=== PATIENT | female | born 1965 | race Caucasian/White ===

== ENCOUNTER 2020-03-23 06:50 | Outpatient (NON) | payer MEDICARE, SELFPAY ==
[2020-03-23 18:24] LABS: SARS-CoV-2 RNA PCR Negative
== END 2020-03-23 06:51 ==
PROVIDERS: PCP Family Medicine; Visit Provider Physician Assistant
DX: Z20.828 Contact with and (suspected) exposure to other viral communicable diseases (principal); R50.9 Fever, unspecified
CPT/HCPCS: 87635; C9803; U0003

== ENCOUNTER 2022-04-04 09:11 | Outpatient (CLI) | payer MEDICARE, SELFPAY ==
--- NOTE | ~2022-04-04 | XR_ITS ---
EXAMINATION: XR chest 2V 04/04/2022 09:33 INDICATION: Lower respiratory infection PROCEDURE: PA and lateral views of the chest COMPARISON: 01/12/2011 FINDINGS: The lungs are clear. The cardiomediastinal silhouette is within normal limits. There are no pleural effusions. There is no pneumothorax suspected. IMPRESSION: 1: NO ACUTE CARDIOPULMONARY DISEASE. Reviewed, dictated and finalized at location A. PAPER COPY EDITOR
[2022-04-04 13:47] LABS: Influenza A QL RT-PCR Positive (Negative); Influenza B QL RT-PCR Negative (Negative); RSV RNA, RT-PCR Negative (Negative); SARS-CoV-2 RNA PCR Negative
== END 2022-04-04 09:12 | disposition home or self-care (01) ==
LOC: ANHIMG 09:15
PROVIDERS: PCP Family Medicine; Visit Provider Physician Assistant Medical
DX: J22 Unspecified acute lower respiratory infection (principal); Z20.822 Contact with and (suspected) exposure to COVID-19
CPT/HCPCS: 71046; 87637

== ENCOUNTER 2022-09-05 14:44 | Outpatient (CLI) | payer MEDICARE, SELFPAY ==
--- NOTE | 2022-09-05 15:09 | ECG_ITS ---
Measurements Intervals [place] Rate: 69 P: -7 AL: 173 QRS: 44 QRSD: 88 T: 28 QT: 406 QTc: 436 Interpretive Statements SINUS RHYTHM BORDERLINE ST ABNORMALITY- INFERIOR LEADS BORDERLINE ECG NO PREVIOUS ECG AVAILABLE FOR COMPARISON Electronically Signed On 09-05-2022 15:34:57 CDT by Timo Tineo D.O.
== END 2022-09-05 14:45 | disposition home or self-care (01) ==
PROVIDERS: PCP Family Medicine; Visit Provider Family Medicine
DX: G45.9 Transient cerebral ischemic attack, unspecified (principal); I10 Essential (primary) hypertension; R94.31 Abnormal electrocardiogram [ECG] [EKG]
CPT/HCPCS: 93005

== ENCOUNTER → 2022-12-31 13:28 | Outpatient (CLI) | payer MEDICARE, SELFPAY ==
--- NOTE | ~2022-12-31 | MM_ITS ---
EXAMINATION: MM screening [facility] BI w yessenia HISTORY: Screening mammogram TECHNIQUE: Craniocaudal and mediolateral oblique 3-D tomosynthesis images were obtained and synthetic 2-D images were generated. CAD analysis was submitted and interpreted. COMPARISON: 11/22/2010, 11/10/2009 BREAST PARENCHYMAL COMPOSITION: There are scattered areas of fibroglandular density. FINDINGS: No suspicious mass, calcification, or architectural distortion are identified in either bekah ast to suggest malignancy. There has been no suspicious interval change. IMPRESSION: 1. No mammographic evidence of malignancy. 2. Recommend routine screening mammography in one year. BI-RADS Category 1: Negative Reviewed, dictated and finalized at location A.
== END ==
PROVIDERS: PCP Family Medicine; Visit Provider Obstetrics & Gynecology
DX: Z12.31 Encounter for screening mammogram for malignant neoplasm of breast (principal)
CPT/HCPCS: 77063; 77067

== ENCOUNTER 2024-02-20 13:21 | Outpatient (CLI) | payer MEDICARE, SELFPAY ==
--- NOTE | ~2024-02-20 | XR_ITS ---
EXAMINATION: XR chest 2V 02/20/2024 13:30 INDICATION: Cough. PROCEDURE: 2 view chest COMPARISON: 04/04/2022 FINDINGS: The lungs are clear. The cardiomediastinal silhouette is within normal limits. There are no pleural effusions. There is no pneumothorax suspected. IMPRESSION: 1: NO ACUTE CARDIOPULMONARY DISEASE. Reviewed, dictated and finalized at location B.
== END 2024-02-20 13:22 | disposition home or self-care (01) ==
LOC: MICIMG 13:22
PROVIDERS: PCP Family Medicine; Visit Provider Student in an Organized Health Care Education/Training Program
DX: R05.9 Cough, unspecified (principal)
CPT/HCPCS: 71046

== ENCOUNTER 2024-06-04 12:41 | Outpatient (CLI) | payer MEDICARE, SELFPAY ==
--- OUTSIDE RECORDS SUMMARY | 2024-06-04 13:26 | XMS_ITS | Clinical Summary ---
Author Organization [facility] nty Address [address] [place] [address] Phone Care Team Providers Care Salon Designer Name Role Phone Unavailable Primary Care Provider Unavailabl e Social History Tobacco Use Types Packs/Day Years Used Date Smoking Tobacco: Never Assessed Comments Unknown Sex and Gender Information Value Date Recorded Sex Assigned at Not on file Legal Sex Female 8:43 AM CDT Gender Identity Not on file Sexual Orientation Not on file Plan of Treatment Health Maintenance Due Date Last Done Comments DTAP/TDAP/TD VACCINES (1 - Tdap) 1984 HEPATITIS B VACCINES (1 of 3 - 19+ 3-dose series) 09/1984 CERVICAL CANCER SCREENING 09/08/1995 BREAST CANCER SCREENING 2005 COLORECTAL SCREENING 2010 Colorectal Cancer Screening 2010 FIT-DNA Q 3 years 2010 FIT/FOBT Q 1 year 2010 Flex Sig/CT Colonography Q 5 years 2010 ZOSTER VACCINE (1 of 2) 09/08/2015 INFLUENZA VACCINE (#1) 2023 Insurance AETNA [id number] [place] [id number]
--- OUTSIDE RECORDS SUMMARY | 2024-06-04 13:26 | XMS_ITS | Patient Health Summary ---
Author Organization [facility] Address [address] [place] [address] Care Team Providers Care Nutritional Services Director Name Role Phone Radha Dickinson MD Primary Care Provider [phone] Note from [facility],non-owned Affiliates and Associated Physician Practices is amultiple site organization consisting of ambulatory clinics and hospital sitesin [place], [place], [place] and [place]. This disclosure is being madepursuant to the Care Everywhere program and may not contain all information available regarding this patient. Last updated 18.[facility] Allergies No known active allergies Medications * Be aware that medications may not be up to date on this document. Alwaysverify current medications with the patient. * zolpidem (AMBIEN) 10 MG tablet(Started 07/15/2017) Take 10 mg by mouth. * citalopram (CELEXA) 40 MG tablet(Started 07/11/2017) Take 40 mg by mouth DAILY. * aspirin (ASPIRIN) 325 MG tablet(Started 07/11/2017) Take 325 mg by mouth DAILY. 3 refills left * fluticasone propionate (FLONASE) 50 MCG/ACT nasal spray(Started 07/18/2017) Candia 2 sprays into each nostril DAILY. 3 refills left * atorvastatin (LIPITOR) 20 MG tablet(Started 05/30/2017) Take 20 mg by mouth once daily 2 refills left * cyclobenzaprine (FLEXERIL) 10 MG tablet Take 1 tablet by mouth * omeprazole (PRILOSEC) 20 MG capsule(Started 03/17/2014) Take 20 mg by mouth daily before breakfast * busPIRone (BUSPAR) 15 MG tablet(Started 10/23/2017) Take 15 mg by mouth once daily 2 refills left * metoprolol succinate XL 24hr (TOPROL XL) 200 MG tablet(Started 10/23/2017) Take 200 mg by mouth once daily 1 refill left * lisinopril (PRINIVIL; ZESTRIL) 10 MG tablet(Started 10/15/2018) Take 10 mg by mouth once daily 2 refills left * amLODIPine (Norvasc) 5 MG tablet(Started 08/27/2022) Take 1 (one) tablet by mouth once daily * amoxicillin-clavulanate (Augmentin) 500-125 MG tablet(Started 10/08/2022) Take 1 (one) tablet by mouth as directed * cephalexin (Keflex) 500 MG capsule(Started 09/28/2022) Take 1 (one) capsule by mouth as directed * doxycycline hyclate 100 MG tablet(Started 05/10/2021) Take 1 (one) tablet by mouth 2 times daily * flurbiprofen 0.03% (Ocufen) 0.03 % ophthalmic solution(Started 08/21/2022) Instill 1 (one) drop into both eyes 3 times daily * guaiFENesin-codeine (Robitussin AC) 100-10 MG/5ML syrup(Started 04/04/2022) Take 5 mL by mouth as directed * hydroCHLOROthiazide (Hydrodiuril) 12.5 MG(Started 11/03/2022) Take 1 (one) tablet by mouth as directed * HYDROcodone-acetaminophen (Harmans) 5-325 MG tablet(Started 10/25/2022) Take 1 (one) tablet by mouth as directed * lisinopril (Prinivil; Zestril) 40 MG tablet(Started 09/24/2022) Take 1 (one) tablet by mouth once daily * methylPREDNISolone (Medrol Dosepak) 4 MG tablet(Started 09/28/2022) Take 1 (one) tablet by mouth as directed * montelukast (Singulair) 10 MG tablet(Started 08/23/2022) Take 1 (one) tablet by mouth once daily * moxifloxacin (Vigamox) 0.5 % ophthalmic solution(Started 08/21/2022) Instill 1 (one) drop into both eyes 3 times daily * prednisoLONE acetate (Pred Forte) 1 % ophthalmic suspension(Started 08/21/2022) Instill 1 (one) drop into both eyes 3 times daily * predniSONE (Deltasone) 10 MG tablet(Started 04/04/2022) Take 1 (one) tablet by mouth as directed * traMADol (Ultram) 50 MG tablet(Started 01/10/2022) Take 1 (one) tablet by mouth every 4 hours as needed For pain. * citalopram (CeleXA) 20 MG tablet(Started 09/13/2022) Take 1 (one) tablet by mouth as directed Active Problems Problem Noted Date Diagnosed Date Tongue lesion 11/01/2017 Malignant neoplasm of tongue 07/11/2017 Other diseases of tongue 12/09/2010 Social History Tobacco Use Types Packs/Day Years Used Date Smoking Tobacco: Every Day Cigarettes Smokeless Tobacco: Never Alcohol Use Standard Drinks/Week Comments Yes 12.5 (1 standard drink = 0.6 oz pure alcohol) Sex and Gender Information Value Date Recorded Sex Assigned at Not on file Gender Identity Not on file Sexual Orientation Not on file Last Filed Vital Signs Vital Sign Reading Time Taken Comments Blood Pressure 156/84 12/11/2019 3:10 PM CDT Pulse 73 12/11/2019 3:10 PM CDT Temperature 36.7 ??C (98.1 ??F) 07/11/2017 3:00 PM CS T Respiratory Rate 16 07/11/2017 3:15 PM PIANO ASSEMBLER Oxygen Saturation 96% 07/11/2017 3:15 PM PIANO ASSEMBLER Inhaled Oxygen Concentration - - Weight 86.9 kg (191 lb 9.6 oz) 12/11/2019 3:10 P M CDT Height 167.6 cm (5' 6 ) 12/11/2019 3:10 PM CDT Body Mass Index 30.93 12/11/2019 3:10 PM CDT Procedures * CARDIAC EKG ORDER(Performed 12/21/2019) * PATHOLOGY/GENETICS HISTORICAL-ONBASE(Performed 07/12/2017) * PATHOLOGY/GENETICS HISTORICAL-ONBASE(Performed 07/12/2017) * PATHOLOGY TISSUE(Performed 07/11/2017) * CBC W AUTO DIFFERENTIAL(Performed 07/11/2017) * TYPE + SCREEN PANEL(Performed 07/11/2017) * CBC W AUTO DIFFERENTIAL(Performed 07/11/2017) * EKG 12-LEAD(Performed 07/11/2017) * PATHOLOGY/GENETICS HISTORICAL-ONBASE(Performed 07/11/2017) * CT NECK SOFT TISSUE W CONT(Performed 06/28/2017) * CT CHEST W CONTRAST(Performed 06/28/2017) * CREATININE BLOOD - POCT (IP) [facility](Performed 06/28/2017) * PATHOLOGY TISSUE(Performed 03/22/2014) * TYPE + SCREEN PANEL(Performed 03/22/2014) * PATHOLOGY/GENETICS HISTORICAL-ONBASE(Performed 03/22/2014) * PATHOLOGY/GENETICS HISTORICAL-ONBASE(Performed 08/13/2012) * PATHOLOGY/GENETICS HISTORICAL-ONBASE(Performed 07/07/2010) * PATHOLOGY/GENETICS HISTORICAL-ONBASE(Performed 07/07/2010) Results * CARDIAC EKG ORDER (12/21/2019 8:45 PM CDT) Narrative 12/21/2019 8:45 PM CDT Ordered by an unspecified provider. Scanned Document CARDIAC SERVICES ORD ERABLES * PATHOLOGY/GENETICS HISTORICAL-ONBASE (07/12/2017) Only the most recent of7 resultswithin the time period is included. 07/12/2017 Historical Provider MD LAB - CHEMISTRY O RDERABLES Performing Organization Address City/State/[facility] [place] [address], [facility] * PATHOLOGY TISSUE (07/11/2017 10:49 AM PIANO ASSEMBLER) Only the most recent of2 resultswithin the time period is included. 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 . FINAL DIAGNOSIS: Tongue, left, partial glossectomy (A): - ??Focal severe dysplasia adjacent to previous biopsy site MICROSCOPIC DESCRIPTION AND COMMENT: The frozen section diagnoses are confirmed. No invasive carcinoma is seen in this specimen. There is focal severe dysplasia adjacent to the biopsy site. A suture with underlying acute inflammation and bacterial colonization is identified at the previous biopsy site. All margins are free of dysplasia. XM1 TANK DRIVER/[place] GROSS DESCRIPTION: The specimen is received fresh in one container labeled with the patient's name, Alana Galan, and left partial glossectomy, stitch anterior , and consists of an irregularly-shaped portion of pink-beal mucosa and underlying soft tissue with a stitch designating anterior as per the container label. ??The specimen measures 2.7 cm from anterior to posterior, 2.8 cm from superior to inferior, and 0.8 cm from medial to lateral. ??Two leukoplakic patches are identified at the rishi-inferior aspect and the posterior aspect of the specimen. ??The specimen is inked as follows: green ? superior, blue ? anterior, black ? posterior, purple ? inferior. ??Portions of the anterior-inferior margin and posterior margins are submitted for frozen section as FSA1 through FSA4. ??Intraoperative consultation is rendered by Dr. Suazo (time received 10:57 a.m.; time reported 11:37 a.m.) as follows: Left partial glossectomy, perpendicular margins FSA! Anterior-inferior margin ? Margin free of carcinoma and dysplasia. ??Biopsy site with suture FSA2 Posterior-inferior margin ? Margin free of carcinoma and dysplasia FSA3 Posterior margin ? Margin free of carcinoma and dysplasia FSA4 Posterior-superior margin ? Negative for invasive carcinoma. ??Moderate to severe dysplasia, 5 mm from margin. Margin free. The remainder of the specimen is radially sectioned, revealing no mass forming lesion. ??Freight Router sections are submitted as follows: A1 ? remnant of FSA1 (anterior-inferior margin) A2 ? remnant of FSA2 (posterior-inferior margin) A3 ? remnant of FSA3 (posterior margin) A4 ? remnant of FSA4 (posterior-superior margin) A5 ? posterior-superior margin A6 ? posterior-inferior margin A7-A9 ? anterior one-half of specimen [place]/met The performance characteristics of all immunohistochemical and indirect immunofluorescence stains (if any) cited in this report were determined by the Histopathology Laboratory of [facility].?? Some of these tests were developed by our own laboratory and have not been cleared or approved by the US Food and Drug Administration.?The FDA does not require this test to go through premarket FDA review.?These tests are used for clinical purposes. They should not be regarded as investigational or for research.?? This laboratory is certified under the Clinical Laboratory Improvement Amendments (CLIA) as qualified to perform high complexity clinical laboratory testing. This case has been personally reviewed and interpreted by the attending (teaching) pathologist. Final Diagnosis performed by Laura Suazo MD. Electronically signed 07/15/2017 [facility] Biopsy, Excision SPECIMEN FROM TONGUE / Unknown 07/11/2017 10:49 AM PIANO ASSEMBLER 07/11/2017 3:17 PM PIANO ASSEMBLER Narrative [facility] - 07/15/2017 11:25 AM CDT Pre-op diagnosis: TONGUE LESION Juanito Lim MD LAB - PATHOLOGY/CYTO LOGY ORDERABLES [facility] [address] [phone] * CBC W AUTO DIFFERENTIAL (07/11/2017 10:05 AM PIANO ASSEMBLER) Only the most recent of2 resultswithin the time period is included. WBC 6.3 3.5 - 10.5 10? 3 /uL [facility] RBC 4.59 3.90 - 5.00 10? 6 /uL [facility] Hemoglobin 13.7 12.0 - 15.5 g/dL [facility] Hematocrit 40.4 35.0 - 45.0 % [facility] MCV 88.0 81.0 - 97.0 fL [facility] MCH 29.8 28.0 - 34.0 pg [facility] MCHC 33.9 32.0 - 36.0 g/dL [facility] Platelet Count 262 150 - 400 10? 3 /uL [facility] RDW-SD 45.1 36.0 - 50.0 fL [facility] RDW-CV 14.0 11.2 - 14.8 % [facility] MPV 10.9 9.3 - 12.8 fL [facility] Neutrophils % 57.7 35.0 - 70.0 % [facility] Lymphocytes % 33.7 19.7 - 55.1 % [facility] Monocytes % 6.2 3.0 - 15.0 % [facility] Eosinophils % 1.9 0.0 - 6.0 % [facility] Basophil % 0.5 0.0 - 1.5 % [facility] Neutrophils Absolute 3.6 1.6 - 7.0 10? 3 /uL [facility] Lymphocyte Absolute 2.1 0.8 - 2.9 10? 3 /uL [facility] Monocytes Absolute 0.39 0.14 - 0.66 10? 3 /uL [facility] Eosinophils Absolute 0.12 0.00 - 0.22 10? 3 /uL [facility] Basophils Absolute 0.03 0.00 - 0.06 10? 3 /uL [facility] Immature Granulocytes % 0.2 0.0 - 1.0 % [facility] Blood specimen (specimen) BLOOD SPECIMEN / Unknown 07/11/2017 10:05 AM PIANO ASSEMBLER 07/11/2017 10:20 AM PIANO ASSEMBLER Getachew Poe MD LAB - HEMATOLOGY ORD ERABLES Performing Organization Address City/[facility]/ZIP Co de Phone Number [address] [phone] * TYPE + SCREEN PANEL (07/11/2017 10:05 AM PIANO ASSEMBLER) Only the most recent of2 resultswithin the time period is included. Typem AB NEG [facility] Antibody Screen NEG [facility] Blood specimen (specimen) 07/11/2017 10:05 AM PIANO ASSEMBLER 07/11/2017 10:22 AM PIANO ASSEMBLER Getachew Poe MD LAB - BLOOD BANK ORD ERABLES Performing Organization Address City/[facility] Co de Phone Number [facility] [address] [place] [address] * EKG 12-LEAD (07/11/2017 12:00 AM PIANO ASSEMBLER) EKG [facility] Comment: Exam Date/Time: ?? Jul 11 2017 09:49:46 Test Reason : hypertension Blood Pressure : / mmHG Vent. Rate : 068 BPM ? Atrial Rate : 068 BPM ?? P-R Int : 138 ms ?QRS Dur : 094 ms ?QT Int : 412 ms ? P-R-T Axes : 003 047 038 degrees ?? QTc Int : 438 ms Normal sinus rhythm Normal ECG No previous ECGs available Confirmed by ARMINDA.MADELINE BHARDWAJ ([id number]), makeup editor Dimitrios Pham ([id number]) on 07/19/2017 11:40:19 AM Referred By: REFERRING NO ? Confirmed By:MADELINE HU 07/11/2017 Getachew Poe MD ECG ORDERABLES [facility] * CT CHEST W CONTRAST (06/28/2017 1:47 PM PIANO ASSEMBLER) Anatomical Region Laterality Modality Chest Other Impressions 06/28/2017 5:12 PM PIANO ASSEMBLER IMPRESSION: 1. No evidence of metastatic disease. Dictated by Roshna Diaz M.D. (certified residential medication aide) Dr. Momo Pineda M.D. have personally reviewed and interpreted this examination/study. This report was electronically signed by Momo TROTTER M.D. ??on 06/28/2017 5:12 PM . Narrative 06/28/2017 5:12 PM PIANO ASSEMBLER EXAMINATION: Computed tomography (CT) of the chest with contrast HISTORY: History of tongue cancer, ??screening. TECHNIQUE: CT of the chest was performed following the uneventful administration of 100 mL of Omnipaque 350 intravenous contrast according to standard protocol. COMPARISON: No prior study is available for comparison. FINDINGS: There is a left-sided two-vessel aortic arch. The aorta and main pulmonary arteries are normal in course and caliber. The lungs are clear of focal consolidation. No pleural effusion or focal pleural thickening is identified. There is no evidence of pneumothorax. No suspicious pulmonary nodule is identified. The trachea is patent and midline. The heart size is normal. No pericardial effusion is present. No mediastinal, hilar, supraclavicular, or axillary lymphadenopathy is seen. The thyroid gland enhances homogenously. The visible portions of the liver, gallbladder, spleen, pancreas, adrenal glands, kidneys, stomach, and bowel are normal. Bone windows demonstrate no suspicious lytic or blastic lesions. The visible osseous structures are intact. Procedure Note Thea Trotter MD - 08/07/2017 EXAMINATION: Computed tomography (CT) of the chest with contrast HISTORY: History of tongue cancer, screening. TECHNIQUE: CT of the chest was performed following the uneventfuladministration of 100 mL of Omnipaque 350 intravenous contrast accordingto standard protocol. COMPARISON: No prior study is available for comparison. FINDINGS: There is a left-sided two-vessel aortic arch. The aorta and main pulmonaryarteries are normal in course and caliber. The lungs are clear of focal consolidation. No pleural effusion or focalpleural thickening is identified. There is no evidence of pneumothorax. Nosuspicious pulmonary nodule is identified. The trachea is patent andmidline. The heart size is normal. No pericardial effusion is present. Nomediastinal, hilar, supraclavicular, or axillary lymphadenopathy is seen.The thyroid gland enhances homogenously. The visible portions of the liver, gallbladder, spleen, pancreas, adrenalglands, kidneys, stomach, and bowel are normal. Bone windows demonstrate no suspicious lytic or blastic lesions. Thevisible osseous structures are intact. IMPRESSION IMPRESSION: 1. No evidence of metastatic disease. Dictated by Roshan Diaz M.D. (certified residential medication aide) Dr. Momo Pineda M.D. have personally reviewed and interpreted thisexamination/study. This report was electronically signed by Momo TROTTER M.D. on06/28/2017 5:12 PM . Juanito Lim MD CT ORDERABLES * CT NECK SOFT TISSUE W CONT (06/28/2017 1:47 PM PIANO ASSEMBLER) Anatomical Region Laterality Modality Head Other Impressions 06/28/2017 4:37 PM PIANO ASSEMBLER IMPRESSION: 1. No enhancing tongue lesion or tongue atrophy identified. No cervical lymphadenopathy. This report was approved ??by Nicole Chun M.D. ?? on 06/28/2017 2:[address] AURELIANO Pineda have personally reviewed and interpreted this examination/study. This report was electronically signed by AURELIANO MAYNARD ??on 06/28/2017 4:37 PM . Narrative 06/28/2017 4:37 PM PIANO ASSEMBLER EXAMINATION: Computed tomography (CT) of the neck with contrast HISTORY: Tongue cancer; left tongue TECHNIQUE: CT of the neck was performed following the uneventful administration of 50 mL Omnipaque 350 contrast according to standard protocol. FINDINGS: No prior study is available for comparison at the time of this dictation. No lymphadenopathy is seen. The muscles of the neck appear normal. No enhancing tongue lesion or tongue atrophy is identified. The patient is status post stenting of the left cervical carotid bifurcation with patent lumen. The right carotid artery is normal. The cervical internal jugular veins appear normal. Fascial planes are preserved and the deep spaces of the neck appear normal. The visualized airway appears normal. The visualized portions of the posterior fossa and brain appear normal. The cervical spine appears normal. The visualized orbits and paranasal sinuses appear normal. The visible lung apices are clear. Procedure Note Aureliano Maynard MD - 08/07/2017 EXAMINATION: Computed tomography (CT) of the neck with contrast HISTORY: Tongue cancer; left tongue TECHNIQUE: CT of the neck was performed following the uneventfuladministration of 50 mL Omnipaque 350 contrast according to standardprotocol. FINDINGS: No prior study is available for comparison at the time of thisdictation. No lymphadenopathy is seen. The muscles of the neck appear normal. Noenhancing tongue lesion or tongue atrophy is identified. The patient isstatus post stenting of the left cervical carotid bifurcation with patentlumen. The right carotid artery is normal. The cervical internal jugular veins appear normal. Fascial planesare preserved and the deep spaces of the neck appear normal. Thevisualized airway appears normal. The visualized portions of the posteriorfossa and brain appear normal. The cervical spine appears normal. The visualized orbits and paranasal sinusesappear normal. The visible lung apices are clear. IMPRESSION IMPRESSION: 1. No enhancing tongue lesion or tongue atrophy identified. No cervicallymphadenopathy. This report was approved by Nicole Chun M.D. on 06/28/2017 2:26 PM. IDr. AURELIANO have personally reviewed and interpreted thisexamination/study. This report was electronically signed by AURELIANO MAYNARD on 06/28/2017 4:37PM . Juanito Lim MD CT ORDERABLES * (ABNORMAL) CREATININE BLOOD - POCT (IP) [facility] (06/28/2017) Creatinine POCT 1.13 0.3 - 1.3 mg/dL [facility] eGFR POCT 54(A) 60 ml/min [facility] 06/28/2017 Enoc Sow MD LAB - POINT OF CARE ORDERABLES Performing Organization Address City/State/[facility] Co de Phone Number [facility] [address] Care Teams Nutritional Services Director Relationship Specialty Start Date End Date Radha Dickinson MD [address] [place], [place] [id number] PCP - General 06/26/10
--- OUTSIDE RECORDS SUMMARY | 2024-06-04 13:26 | XMS_ITS | Referral Summary ---
Author Organization [facility] Address [address] [place] [address] Care Team Providers Care Desk Pen Set Assembler Name Role Phone Radha Dickinson MD Primary Care Provider [phone] Source Comments [facility],non-owned Affiliates and Associated Physician Practices is amultiple site organization consisting of ambulatory clinics and hospital sitesin [place], [place], [place] and [place]. This disclosure is being madepursuant to the Care Everywhere program and may not contain all information available regarding this patient. Last updated 18.[facility] Allergies No known active allergies Medications * Be aware that medications may not be up to date on this document. Alwaysverify current medications with the patient. Medication Sig Dispensed Refills Start Date End Date Status zolpidem (AMBIEN) 10 MG tablet Take 10 mg by mouth. 07/15/2017 Active citalopram (CELEXA) 40 MG tablet Take 40 mg by mouth DAILY. 07/11/2017 Active aspirin (ASPIRIN) 325 MG tablet Take 325 mg by mouth DAILY. 100 tablet 3 07/11/2017 Active fluticasone propionate (FLONASE) 50 MCG/ACT nasal spray [place] 2 sprays into each nostril DAILY. 3 07/18/2017 Active atorvastatin (LIPITOR) 20 MG tablet Take 20 mg by mouth once daily 2 05/30/2017 Active cyclobenzaprine (FLEXERIL) 10 MG tablet Take 1 tablet by mouth Active omeprazole (PRILOSEC) 20 MG capsule Take 20 mg by mouth daily before breakfast 03/17/2014 Active busPIRone (BUSPAR) 15 MG tablet Take 15 mg by mouth once daily 2 10/23/2017 Active metoprolol succinate XL 24hr (TOPROL XL) 200 MG tablet Take 200 mg by mouth once daily 1 10/23/2017 Active lisinopril (PRINIVIL; ZESTRIL) 10 MG tablet Take 10 mg by mouth once daily 2 10/15/2018 Active amLODIPine (Norvasc) 5 MG tablet Take 1 (one) tablet by mouth once daily 08/27/2022 Active amoxicillin-clavula darrian (Augmentin) 500-125 MG tablet Take 1 (one) tablet by mouth as directed 10/08/2022 Active cephalexin (Keflex) 500 MG capsule Take 1 (one) capsule by mouth as directed 09/28/2022 Active doxycycline hyclate 100 MG tablet Take 1 (one) tablet by mouth 2 times daily 05/10/2021 Active flurbiprofen 0.03% (Ocufen) 0.03 % ophthalmic solution Instill 1 (one) drop into both eyes 3 times daily 08/21/2022 Active guaiFENesin-codeine (Robitussin AC) 100-10 MG/5ML syrup Take 5 mL by mouth as directed 04/04/2022 Active hydroCHLOROthiazide (Hydrodiuril) 12.5 MG Take 1 (one) tablet by mouth as directed 11/03/2022 Active HYDROcodone-acetami nophen (Dendron) 5-325 MG tablet Take 1 (one) tablet by mouth as directed 10/25/2022 Active lisinopril (Prinivil; Zestril) 40 MG tablet Take 1 (one) tablet by mouth once daily 09/24/2022 Active methylPREDNISolone (Medrol Dosepak) 4 MG tablet Take 1 (one) tablet by mouth as directed 09/28/2022 Active montelukast (Singulair) 10 MG tablet Take 1 (one) tablet by mouth once daily 08/23/2022 Active moxifloxacin (Vigamox) 0.5 % ophthalmic solution Instill 1 (one) drop into both eyes 3 times daily 08/21/2022 Active prednisoLONE acetate (Pred Forte) 1 % ophthalmic suspension Instill 1 (one) drop into both eyes 3 times daily 08/21/2022 Active predniSONE (Deltasone) 10 MG tablet Take 1 (one) tablet by mouth as directed 04/04/2022 Active traMADol (Ultram) 50 MG tablet Take 1 (one) tablet by mouth every 4 hours as needed For pain. 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
--- OUTSIDE RECORDS SUMMARY | 2024-06-04 13:26 | XMS_ITS | Clinical Summary ---
Author Organization [facility] Address [address] [place] [address] Care Team Providers Care Hotel Office Manager Name Role Phone Radha Dickinson MD Primary Care Provider [phone] [facility],non-owned Affiliates and Associated Physician Practices is amultiple site organization consisting of ambulatory clinics and hospital sitesin [place], [place], [place] and [place]. This disclosure is being madepursuant to the Care Everywhere program and may not contain all information available regarding this patient. Last updated 18.[facility] Allergies No known active allergies Medications * [...] fluticasone propionate (FLONASE) 50 MCG/ACT nasal spray [place] 2 sprays into each nostril DAILY. 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 Oxygen Saturation 96% 07/11/2017 3:15 PM PARTY PLAN SALESPERSON Inhaled Oxygen Concentration - - Weight 86.9 kg (191 lb 9.6 oz) 12/11/2019 3:10 P M CDT Height 167.6 cm (5' 6 ) 12/11/2019 3:10 PM CDT Body Mass Index 30.93 12/11/2019 3:10 PM CDT Plan of Treatment Health Maintenance Due Date Last Done Comments COLOGUARD (AGES 45-75) - COL ON CA SCREENING 1965 COLON MONITORING 1965 COLONOSCOPY - COLON CA SCREENING 1965 CT COLONOGRAPHY - COLON CA SCREENING 1965 Colorectal Cancer Screening 1965 FIT - COLON CA SCREENING 1965 FLEX SIG - COLON CA SCREENING 1965 MAMMOGRAM 1965 PAP SMEAR 1965 HIV SCREENING 1980 HEPATITIS C SCREENING 09/03/1983 DTAP/TDAP/TD VACCINES (1 - Tdap) 1984 HEPATITIS B VACCINE (1 of 3 - 19+ 3-dose series) 1984 PNEUMOCOCCAL VACCINE 50+ (1 of 2 - PCV) 1984 PNEUMOCOCCAL VACCINE (1 of 2 - PCV) 1984 ZOSTER VACCINE (1 of 2) 09/08/2015 COVID-19 VACCINE (1 - 2023-2 5 season) 2024 INFLUENZA VACCINE (#1) 2024 DEPRESSION SCREENING 05/06/2024 MEDICARE AWV ? CALENDAR YEAR 2024 HIB VACCINE Aged Out No longer eligi ble based on patient's age to complete this topic HPV VACCINE Aged Out No longer eligi ble based on patient's age to complete this topic MENINGOCOCCAL (Group B) VACCINE Aged Out No longer eligible based on patient's age to complete this topic MENINGOCOCCAL VACCINE Aged Out No zan ila eligible based on patient's age to complete this topic Care Teams Hotel Office Manager Relationship Specialty Start Date End Date Radha Dickinson MD [address] [place], [place] [id number] PCP - General 06/26/10
[2024-06-04 14:08] LABS: Influenza A QL RT-PCR Negative (Negative); Influenza B QL RT-PCR Negative (Negative); RSV RNA, RT-PCR Negative (Negative); SARS-CoV-2 RNA PCR Negative (Negative)
== END 2024-06-04 12:42 | disposition home or self-care (01) ==
LOC: ANHLAB 12:42
PROVIDERS: PCP Family Medicine; Visit Provider Family Medicine
DX: J06.9 Acute upper respiratory infection, unspecified (principal); Z20.822 Contact with and (suspected) exposure to COVID-19
CPT/HCPCS: 87637

== ENCOUNTER 2025-04-20 15:47 | Outpatient (CLI) | payer MEDICARE, SELFPAY ==
--- NOTE | ~2025-04-20 | XR_ITS ---
EXAMINATION: XR chest 2V, 04/20/2025 15:52 SHAKER SCREEN OPERATOR HISTORY: R09.89 - Other specified symptoms and signs involving the... COMPARISON: No comparisons available. Technique: 2 views obtained. Findings: The lungs are clear, no effusion. No pneumothorax. Heart is normal size. Mediastinal and hilar contours are within normal limits. Bony thorax no acute abnormality. Impression: No acute cardiopulmonary abnormality. Reviewed, dictated and finalized at location P. ER SCREEN OPERATOR Impression: No acute cardiopulmonary abnormality.
== END 2025-04-20 15:48 | disposition home or self-care (01) ==
LOC: MICIMG 15:48
DX: R09.89 Other specified symptoms and signs involving the circulatory and respiratory systems (principal)
CPT/HCPCS: 71046